=== PATIENT | female | born 1985 | race Asian ===

== ENCOUNTER 2016-11-21 11:48 | Emergency (ER) | payer OTHER ==
[2016-11-21 11:56] VITALS: BP 131/84; PULSE 82; TEMP 98.4; BMI 26.9
--- NOTE | 2016-11-21 12:27 | PDOC ---
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 Patient was stuck on the right hand. Patient needs tetanus update. GENERAL/CONSTITUTIONAL: No fever, weakness. dizziness HEAD, EYES, EARS, NOSE AND THROAT: No change in vision. No ear pain or discharge. No sore throat. CARDIOVASCULAR: No chest pain RESPIRATORY: No shortness of breath or cough GASTROINTESTINAL: No pain, nausea, vomiting, diarrhea or constipation GENITOURINARY: No dysuria MUSCULOSKELETAL: No neck or back pain SKIN: No rash, + needlestick NEUROLOGIC: No headache, vertigo, loss of consciousness, or loss of sensation. GENERAL: The patient is awake, alert, and fully oriented, in no acute distress. HEAD: Normal with no signs of trauma. EYES: Pupils equal, round and reactive to light, sclera anicteric, conjunctiva clear. ENT: pharynx: no erythema, no exudate, uvula midline NECK: supple CHEST: clear, nontender, rr ABD: soft, nontender EXTREMITIES: All puncture wound at the base of the right thumb, no signs of infection, full range of motion, no swelling, neurovascular intact, otherwise extremities, normal range of motion, no edema. NEUROLOGICAL: Normal speech, normal gait. SKIN: Warm, Dry Past History - Past Medical History Allergies/Adverse Reactions: Allergies Allergy/AdvReac Type Severity Reaction Status Date / Time No Known Allergies Allergy Verified 11/21/16 11:50 Home Medications: Ambulatory Orders Emtricitabine/Tenofovir [Truvada] 1 tab PO DAILY #30 tablet 11/21/16 Raltegravir [Isentress -] 400 mg PO BID #60 tab 11/21/16 GI Disorders: Yes ("GI BLEEDING") Other medical history: none - Immunization History Immunization Up to Date: No - Psycho/Social/Smoking Cessation Hx Anxiety: No Suicidal Ideation: No Smoking History: Never smoked Have you smoked in the past 12 months: No Information on smoking cessation initiated: No Hx Alcohol Use: No Drug/Substance Use Hx: No Substance Use Type: None *Physical Exam - Vital Signs Last Vital Signs Temp Pulse Resp BP Pulse Ox 98.4 F 82 18 131/84 100 11/21/16 11:52 11/21/16 11:52 11/21/16 11:52 11/21/16 11:52 11/21/16 11:52 ED Treatment Course - LABORATORY CBC & Chemistry Diagram: 11/21/16 12:54 11/21/16 12:54 Medical Decision Making - Medical Decision Making 11/21/16 13:20 He shouldn't with needlestick from a dialysis patient, patient already left the dialysis unit. Patient brought results of hepatitis screening which for B&C were negative, no HIV testing available. Spoke to supervisor gluing. Brigido at dialysis center. She will follow-up with the doctor there and the patient to ensure testing of the patient is done. Meanwhile patient will be started on HIV prophylaxis, everything was discussed with patient and she understands and agreed with prophylaxis *DC/Admit/Observation/Transfer Diagnosis at time of Disposition: Exposure to bloodborne pathogen - Discharge Dispostion Disposition: HOME Condition at time of disposition: Stable - Prescriptions Prescriptions: Raltegravir [Isentress -] 400 mg PO BID #60 tab Emtricitabine/Tenofovir [Truvada] 1 tab PO DAILY #30 tablet - Referrals Referrals: Hitesh Spencer MD [Staff Physician] - - Patient Instructions Additional Instructions: Truvada once a day, take the isentress 2 times daily Follow-up with your work regarding testing of the source patient for HIV Follow-up with the infectious disease doctor so they can access your results and gave you proper management - Post Discharge Activity Work/School Note: Back to Work
[2016-11-21] MEDS ORDERED: TETANUS AND DIPHTHERIA TOXOID 0.5 ML DISP.SYRIN IM ONE (12:54)
[2016-11-21] MEDS ORDERED: ACETAMINOPHEN 325 MG TABLET (FP) PO ONE (13:06)
[2016-11-21] MEDS ORDERED: HIV POST EXPOSURE PROPHYLAXIS KIT NR ONE (13:07)
[2016-11-21] MEDS ORDERED: ACETAMINOPHEN 325 MG TABLET (FP) ONE (13:07)
[2016-11-21 13:16] LABS: BASOPHIL 0.8 % (0-2.0); EOSINOPHIL 3.7 % (0-4.5); MCH 28.7 pg (25.7-33.7); MEAN CELL VOLUME 86.8 fl (80-96); MEAN PLT VOLUME 7.4 fl (7.5-11.1); NEUTROPHILS 66.7 % (42.8-82.8); PLATELET COUNT 346 K/MM3 (134-434); RDW 13.9 % (11.6-15.6); WHITE BLOOD COUNT 6.9 K/mm3 (4.0-10.0)
[2016-11-21 13:39] LABS: ALBUMIN 3.7 g/dl (3.4-5.0); ANION GAP 11 (8-16); CALCIUM 8.7 mg/dL (8.5-10.1); CO2 27 mmol/L (21-32); COCKROFT - GAULT 127.8995; CREATININE 0.7 mg/dL (0.55-1.02); GLUCOSE,RANDOM 117 mg/dL (74-106); PHOSPHOROUS 2.7 mg/dL (2.5-4.9); SGOT/AST 25 U/L (15-37); SGPT/ALT 47 U/L (12-78)
[2016-11-21 13:41] LABS: ALK PHOS 79 U/L (45-117); BILIRUBIN,TOTAL 0.3 mg/dL (0.2-1.0); LDH 199 U/L (84-246); TOT PROT 7.4 g/dl (6.4-8.2)
[2016-11-21 14:07] LABS: HIV 1 & 2 AB NEGATIVE; HIV 1 AGp24 NEGATIVE
[2016-11-21] MEDS ORDERED: HIV POST EXPOSURE PROPHYLAXIS KIT PO ONE (14:30)
[2016-11-23 06:06] LABS: HEP B SURFACE AB Reactive (.)
== END 2016-11-21 14:35 | disposition home or self-care (01) ==
LOC: JERFT 11:48
DX: S61.031A Puncture wound without foreign body of right thumb without damage to nail, initial encounter (principal); W46.1XXA Contact with contaminated hypodermic needle, initial encounter; Y93.F9 Activity, other caregiving; Y92.538 Other ambulatory health services establishments as the place of occurrence of the external cause
CPT/HCPCS: 36415; 80053; 82977; 83615; 84100; 85025; 86704; 86706; 87340; 87389; 99282-25